=== PATIENT | male | born 1945 | race Caucasian/White ===

== ENCOUNTER 2020-03-09 00:30 | Inpatient (IN) ==
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
[2020-03-09] MEDS ORDERED: ONDANSETRON 4 MG/2 ML VIAL IV PRN ×3 (01:15→10:03)
[2020-03-09] MEDS: HYDROmorphone 1 MG/ML SYRINGE IV PRN ×3 (01:56→19:05)
[2020-03-09] MEDS ORDERED: 0.9 % SODIUM CHLORIDE 1,000 ML IV SCH (02:00)
[2020-03-09] MEDS ORDERED: 0.9 % SODIUM CHLORIDE 10 ML SYRINGE IV SCH (06:00)
[2020-03-09] MEDS: DOCUSATE SODIUM 100 MG CAPSULE PO SCH ×2 (08:29→20:18)
[2020-03-09] MEDS ORDERED: KETAMINE 100 MG/ML ML ONE (08:55)
[2020-03-09] MEDS ORDERED: LIDOCAINE HCL/PF 100 MG/5 ML SYRINGE IV ONE (08:55)
[2020-03-09] MEDS ORDERED: ONDANSETRON 4 MG/2 ML VIAL ONE (08:55)
[2020-03-09] MEDS ORDERED: DEXAMETHASONE 10 MG/ML VIAL ONE (08:55)
[2020-03-09] MEDS ORDERED: PROPOFOL 200 MG/20 ML VIAL IV ONE (08:55)
[2020-03-09] MEDS ORDERED: ceFAZolin 1 GM VIAL ONE (08:57)
[2020-03-09] MEDS ORDERED: ceFAZolin 2 GM in DEXTROSE 5% IN WATER 50 ML IV SCH (09:00)
--- NOTE | 2020-03-09 09:24 | XRay Report ---
HISTORY: Chest pain, dyspnea, hip fracture FINDINGS: The lungs are clear and well expanded. The heart size and pulmonary vasculature are normal. The mediastinum and hilar normal. There are several old left lateral rib fractures. Metallic foreign body is seen in the left upper quadrant of the abdomen. This was present on a prior CT done on 01/08/13 and may be from prior trauma or surgery. IMPRESSION: No acute abnormality Interpreted and Authenticated by: Derek Pichardo 03/09/20
[2020-03-09] MEDS ORDERED: NALOXONE HCL 0.4 MG/ML VIAL IV PRN (09:41)
[2020-03-09] MEDS ORDERED: ATROPINE SULFATE 0.4 MG/ML VIAL IV PRN (09:41)
[2020-03-09] MEDS ORDERED: METHOCARBAMOL 1,000 MG/10 ML VIAL IV PRN (09:41)
[2020-03-09] MEDS ORDERED: ePHEDrine 50 MG/ML AMPUL IV PRN (09:41)
[2020-03-09] MEDS ORDERED: ACETAMINOPHEN 1,000 MG/100 ML BOTTLE IV ONE (09:41)
[2020-03-09] MEDS ORDERED: fentaNYL 100 MCG/2 ML VIAL IV PRN (09:41)
[2020-03-09] MEDS ORDERED: IPRATROPIUM/ALBUTEROL 3 ML AMPUL.NEB NEB PRN (09:41)
[2020-03-09] MEDS ORDERED: FLUMAZENIL 0.1 MG/ML ML IV PRN (09:41)
[2020-03-09] MEDS ORDERED: PROMETHAZINE 25 MG/ML VIAL IV PRN (09:41)
[2020-03-09] MEDS ORDERED: METOPROLOL TARTRATE 5 MG/5 ML VIAL IV PRN (09:41)
[2020-03-09] MEDS ORDERED: diphenhydrAMINE 50 MG/ML VIAL IV PRN (09:41)
--- NOTE | 2020-03-09 10:00 | XRay Report ---
HISTORY: FINDINGS: IMPRESSION: 0.6 minutes of fluoroscopy time was used Interpreted and Authenticated by: Derek Pichardo 03/09/20
[2020-03-09] MEDS ORDERED: BENZOCAINE/MENTHOL 1 LOZENGE PO PRN (10:04)
[2020-03-09] MEDS ORDERED: FLEETS ADULT ENEMA PR PRN (10:05)
[2020-03-09] MEDS ORDERED: DEXTROSE 31 GM ORAL.SUSP PO PRN (10:14)
[2020-03-09] MEDS ORDERED: DEXTROSE 50% 50 ML VIAL IV PRN (10:14)
--- NOTE | 2020-03-09 10:17 | Consultation ---
DATE OF CONSULTATION: 03/09/2020 REQUESTING PHYSICIAN: Hospitalist service. CONSULTING PHYSICIAN: Dr Galindo. REASON FOR CONSULTATION: Left hip fracture. HISTORY: This is a 74-year-old male with multiple medical comorbidities who lost his balance picking up his cat and landed on the ground and injured his left hip. He was unable to bear weight and had severe pain. He was taken to the Emergency Department in [place] and x-rays taken, which showed intertrochanteric fracture. He denies any other associated injuries or significant loss of consciousness. PAST MEDICAL HISTORY: Positive for type 2 diabetes, exposure to Agent [place], hypertension, hypothyroidism, hyperlipidemia. MEDICATIONS: Inderal, alogliptin, empagliflozin, hydroxyzine, levothyroxine, metformin, propranolol, primidone, omeprazole, glipizide, docusate. ALLERGIES: No drug allergies. SOCIAL HISTORY: He is a former smoker. Drinks alcohol a few times a week. FAMILY HISTORY: Positive for mother with atrial fibrillation. REVIEW OF SYSTEMS: His 10 system review is negative, except per the HPI. PHYSICAL EXAMINATION: VITAL SIGNS: He is 5 feet 10.5 inches tall, 220 pounds, blood pressure 149/85, respirations 16, pulse 82, temperature 97.6. GENERAL: He appears his stated age in no acute distress. He is oriented to person and place. Mood and affect are appropriate. HEART: Regular. LUNGS: Clear. EXTREMITIES: Bilateral upper extremities and right lower extremity show no obvious evidence of injury and are normal to inspection, range of motion, stability and strength. Left lower extremity is normal to inspection. However, range of motion is limited secondary to pain. There is no gross instability, but significant guarding. Strength is 3/5 distally with foot flexion and extension. Sensation to light touch is grossly intact. Pedal pulses palpable. His x-ray reviewed from shows left intertrochanteric hip fracture. IMPRESSION: Closed left intertrochanteric hip fracture in a 74-year-old male with multiple medical comorbidities. PLAN: Recommend proceeding with open treatment and internal fixation of the left hip fracture with intramedullary bernie fixation. Risks of surgery include, but not limited to, bleeding; infection; injury to nerves, blood vessels, other surrounding structures; anesthetic risks; nonunion or malunion of fracture; failure of hardware fixation; possibility of needing further surgery; and DVT and pulmonary embolus risks. He understands and wishes to proceed. BJB:aide Job ID: [id number] Doc ID: [id number] John Galindo MD
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
[2020-03-09] MEDS: 0.9 % SODIUM CHLORIDE 1,000 ML IV SCH ×2 (10:48→20:19)
[2020-03-09] MEDS: INSULIN LISPRO 1 UNIT/0.01 ML UNIT SQ SCH ×3 (11:33→20:17)
[2020-03-09] MEDS: HYDROCODONE/APAP 7.5/325MG TABLET PO PRN ×3 (11:47→22:07)
[2020-03-09] MEDS: 0.9 % SODIUM CHLORIDE 10 ML SYRINGE IV SCH ×2 (12:54→20:19)
[2020-03-09] MEDS ORDERED: WARFARIN 5 MG TABLET PO ONE (14:00)
--- NOTE | 2020-03-09 15:10 | XRay Report ---
HISTORY: Postop open reduction internal fixation of fractured left hip FINDINGS: There is good alignment following open reduction internal fixation of the intertrochanteric fracture. A bernie has been inserted through the greater trochanter into the shaft of the femur and there is a crossing bernie extending into the femoral head and neck. The impaction and angulation seen preoperatively have been corrected. The femoral head is normally aligned with the acetabulum and there is no underlying arthritis. IMPRESSION: Good alignment following internal fixation of the fractured proximal left femur Interpreted and Authenticated by: Derek Pichardo 03/09/20
[2020-03-09 15:49] LABS: POC INR 1.2 (0.8-1.2); POC Pro Time 14.4 sec (11.9-14.5)
[2020-03-09] MEDS: ceFAZolin 1 GM VIAL IV SCH (17:41)
[2020-03-09] MEDS: OMEPRAZOLE 20 MG CAPSULE PO SCH (19:05)
[2020-03-09] MEDS: PRIMIDONE 50 MG TABLET PO SCH (20:18)
[2020-03-09] MEDS: SENNOSIDES 1 TABLET PO SCH (20:18)
[2020-03-09] MEDS: PROPRANOLOL 60 MG CAP.XL.24H PO SCH (20:18)
[2020-03-09] MEDS ORDERED: HEPARIN 5,000 UNIT/ML VIAL SQ SCH (21:00)
[2020-03-09] MEDS ORDERED: DOCUSATE SODIUM 100 MG CAPSULE PO SCH (21:00)
[2020-03-10] MEDS: ceFAZolin 1 GM VIAL IV SCH (01:00)
[2020-03-10] MEDS: HYDROCODONE/APAP 7.5/325MG TABLET PO PRN ×3 (04:20→14:38)
[2020-03-10] MEDS: 0.9 % SODIUM CHLORIDE 10 ML SYRINGE IV SCH ×3 (05:58→20:50)
[2020-03-10] MEDS: 0.9 % SODIUM CHLORIDE 1,000 ML IV SCH (06:23)
[2020-03-10 06:45] LABS: INR 1.1 (0.9-1.1); Prothrombin Time 15.1 sec (11.9-14.5)
[2020-03-10 06:48] LABS: Basophils # (Auto) 0.04 K/mcL (0.00-0.20); Basophils % (Auto) 0.5 % (0.0-2.0); Eosinophils # (Auto) 0.18 K/mcL (0.00-0.70); Eosinophils % (Auto) 2.5 % (0.0-7.0); Hematocrit 34.4 % (41.0-55.0); Hemoglobin 11.1 g/dL (13.5-16.5); Lymphocytes # (Auto) 1.48 K/mcL (1.50-4.80); Lymphocytes % (Auto) 20.3 % (15.0-49.0); Mean Corpuscular HGB Conc 32.3 g/dL (31.0-36.0); Mean Platelet Volume 10.6 fL (7.4-10.4); Monocytes # (Auto) 0.94 K/mcL (0.10-0.90); Monocytes % (Auto) 12.9 % (1.0-12.0); Neutrophils % (Auto) 63.8 % (38.0-78.0); Platelet Count 218 K/mcL (140-440); RBC 3.66 M/mcL (4.50-5.90); Red Cell Distribution Width 15.1 % (11.5-14.5); WBC 7.3 K/mcL (4.5-11.0)
[2020-03-10 07:32] LABS: ALT/SGPT 9 U/L (<40); AST/SGOT 11 U/L (<40); Albumin/Globulin Ratio 1.4 (1.0-2.3); Alkaline Phosphatase 65 U/L (39-117); Bilirubin,Total 0.2 mg/dL (0.1-1.0); Blood Urea Nitrogen 27 mg/dL (8-23); Calcium 7.5 mg/dL (8.6-10.4); Carbon Dioxide 20 mmol/L (22-30); Chloride 104 mmol/L (96-108); Globulin 2.1 gm/dL (2.2-3.7); Glomerular Filtration Rate 54; Glucose 259 mg/dL (70-105)
[2020-03-10] MEDS: LEVOTHYROXINE 125 MCG TABLET PO SCH (07:36)
[2020-03-10] MEDS: INSULIN LISPRO 1 UNIT/0.01 ML UNIT SQ SCH (07:36)
[2020-03-10] MEDS: DOCUSATE SODIUM 100 MG CAPSULE PO SCH ×2 (08:32→20:49)
[2020-03-10] MEDS: PROPRANOLOL 40 MG TABLET PO SCH (08:32)
[2020-03-10] MEDS: ATORVASTATIN 20 MG TABLET PO SCH (08:33)
[2020-03-10] MEDS: PROPRANOLOL 160 MG PO SCH (08:33)
[2020-03-10] MEDS ORDERED: PATIENTS OWN MEDICATION 1 DOSE MISCELL PO SCH (09:00)
--- NOTE | 2020-03-10 09:50 | Operative Note ---
DATE OF OPERATION: 03/09/2020 PREOPERATIVE DIAGNOSIS: Left hip intertrochanteric hip fracture, closed. POSTOPERATIVE DIAGNOSIS: Left hip intertrochanteric hip fracture, closed. PROCEDURE PERFORMED: Open treatment and internal fixation of left intertrochanteric hip fracture with intramedullary fixation using a short [place] Gamma nail. SURGEON: John Galindo M.D. RECEIVING TANK OPERATOR: Riccardo Rodrigues PA-C. The PA's assistance was required for the safe and efficient completion of the entire case. This provider's expertise and technical skill were required throughout the case. The PA assisted with preoperative coordination, intraoperative retraction, wound closure, dressing and splint application, as well as postoperative documentation and care coordination. ANESTHESIA: General. DRAINS: None. SPECIMENS: None. COMPLICATIONS: None. BLOOD LOSS: 100 mL. POSTOPERATIVE CONDITION: Stable. INDICATIONS FOR SURGERY: This is a 74-year-old male who sustained a fall last night injuring his left hip. He had inability to bear weight. He was taken to the ER in [place] and found to have an intertrochanteric hip fracture. FINDINGS AT SURGERY: Intertrochanteric hip fracture. Post-fixation showed satisfactory fracture reduction and hardware position. PROCEDURE IN DETAIL: The patient had been seen preoperatively. Informed consent had been obtained after discussion of risks and benefits of surgery. Risks including, but not limited to, bleeding; infection; injury to nerves, blood vessels, and other surrounding structures; anesthetic risks; nonunion or malunion of fracture; failure of hardware fixation; possibility of needing further surgery; and DVT and pulmonary embolus risks. He understood and wished to proceed. Correct operative site was marked. The patient was taken to the operating room and general anesthesia induced. He was carefully positioned on the fracture table and the left lower extremity was placed in some mild traction with internal rotation. The right lower extremity was flexed and abducted out of the way and pressure points carefully padded. Fluoroscopy was brought in to verify fracture reduction. Left hip was prepped and draped in normal sterile fashion. Timeout was performed verifying patient name, operative site, and plan. Incision was made proximal to greater trochanter with a scalpel through skin and subcutaneous tissue. Hemostasis was obtained with Bovie cautery. We continued on with the Bovie down through the IT band. A guide pin was placed in the tip of the trochanter and then passed down in the shaft. We checked the lateral view and made slight adjustment to make sure it was aiming down the shaft. We then placed a soft tissue protector and opening reamer was used and then used a 125 short gamma nail. This was passed in the proximal femur. This was taken down until the lag screw would be central in the neck. The sleeve was taken down to skin and a scalpel was used to make an incision. We then spread with a tonsil clamp and then the sleeve was taken down to bone. We drilled the near cortex. A threaded guide pin was passed up in the femoral neck. We checked our AP view and then checked our lateral view and made minor adjustments until we liked our trajectory, and this was taken up to nearly the articular surface. We then used a depth gauge to determine our lag screw which was a 90 mm. We then used the step reamer to ream and then the 90 lag screw was placed over the guide pin and up into the femoral head. This was taken up until it was less than a centimeter from the articular surface on both AP and lateral views. We then placed our proximal locking screw and nail. This was taken until it was all the way locked and then verified we could not rotate the lag screw and then backed off a quarter turn to allow sliding compression. We then removed the sleeve and guide pin. We then used the smaller sleeve for the distal interlock. Again, a stab incision was made and the sleeve was passed down to bone. We drilled and a 40 mm distal interlock screw was opened. This was advanced until it was against cortex with good bicortical purchase. We then removed the sleeve and removed the jig. Final fluoro images were taken, AP and lateral views. We then irrigated copiously with saline. A #1 Vicryls used to close the IT band proximally. We also used #1 Vicryl for some fat closure and then 2-0 Monocryl for subcutaneous and ginger for skin. Xeroform and sterile dressing were applied. The patient was awakened, extubated, and transferred to recovery in stable condition. KASHMIR:ginna Job ID: [id number] Doc ID: [id number] John Galindo MD
[2020-03-10] MEDS ORDERED: 0.9 % SODIUM CHLORIDE 1,000 ML IV SCH (10:30)
[2020-03-10] MEDS ORDERED: 0.9 % SODIUM CHLORIDE 1,000 ML BAG IV SCH (10:30)
--- NOTE | 2020-03-10 10:43 | Internal Med Progress Note ---
SUBJECTIVE Subjective Patient information: Note initiated : 03/10/20 at 10:40 am Service Date, if different from initiated Date: [] Patient: Robson Mccullough 74 y/o M admitted on 03/09/20 for xfer from [facility] for hip fx. Chief Complaint: [] Mr. Mcculolugh is a 74 year old M with a past medical history of diabetes type 2, high blood pressure, essential tremor, psoriasis, and hypothyroidism who was sent to the ER from of [facility] due to fracture of left hip. As per patient and , patient had a mechanical fall 6 PM yesterday. Denies loss of consciousness or injury to his head. After the fall, he developed the left hip pain. Otherwise he denies headache, dizziness, nausea, vomiting, chest pain, abdominal pain, dysuria, or change in vision. In the ER x-ray showed left hip fracture. When I saw this patient, other than the symptoms mentioned above, he was fine. 03/10 Today patient feels fine and does not have any complaints. Pain is controlled. Patient refused use of insulin. Last night I discussed with patient and . Initially patient agreed with insulin sliding scale. But this morning he refused insulin again. Discussed with the patient and again. He did not change his mind. So I discontinued his insulin sliding scale and keep Accu-Chek 4 times a day. I ordered his oral diabetic medication other than metformin. This morning his temperature 99.1. Otherwise vital signs are stable and acceptable. he has been on home oxygen. Continue oxygen WBC 7.3, hemoglobin 11.1, creatinine 1.3. Review of Systems All systems: reviewed and no additional remarkable complaints except as stated Constitutional Vitals: Vital Signs Temp Pulse Resp BP Pulse Ox 99.1 F H 80 20 137/69 95 03/10/20 07:48 03/10/20 07:48 03/10/20 07:48 03/10/20 07:48 03/10/20 07:48 Period Temp Pulse Resp BP Sys/Estrada Pulse Ox Last 24 Hr 98.0 F-99.2 F 80-92 16-20 133-166/69-87 94-98 Intake and Output 03/09/20 03/10/20 03/10/20 21:59 05:59 13:59 Intake Total 2732 1240 1240 Output Total 1575 700 575 Balance 1157 540 665 Weight 95.254 kg Intake & Output: Intake & Output 03/09/20 03/10/20 03/10/20 21:59 05:59 13:59 Intake Total 2732 1240 1240 Output Total 1575 700 575 Balance 1157 540 665 Weight 95.254 kg Intake: IV 952 1000 Sodium Chloride 0.9% 1,000 ml @ 952 1000 100 mls/hr IV .Q10H [facility] Rx#: [id number] Oral 1780 1240 240 Output: Urine Catheter Amount 1575 700 Void Amount 575 Other: Meal Dinner Breakfast Percent of Meal Consumed 100% 75% Feeding Ability Independent Independent Urine Appearance Clear Clear Uretheral (Han) Clear Urine Color Pale Dark Yellow Uretheral (Han) Pale Additional findings Additional findings: General - No acute distress Eyes - PERRLA, EOM intact ENT no rhinorrhea, no redness or rash around throat or on face Neck supple, no JVD, no thyromegaly Respiratory: Lungs -clear, no wheezing or crackles. Cardiovascular - RRR no m/r/g, GI - Normal bowel sounds, no distended, soft. Extremeties -left hip tenderness, dressing dry. Good peripheral pulse. Hemo/lymphatic/immune no lymphadenopathy Neurological Alert and oriented x 3, no focal neurological deficits. Psychiatry flat affect OBJ DATA Labs CBC & Chem 7: 03/10/20 05:17 03/10/20 05:17 Labs: Abnormal Lab Results 03/10/20 03/10/20 03/10/20 05:17 05:17 05:17 RBC 3.66 L Hgb 11.1 L Hct 34.4 L RDW 15.1 H MPV 10.6 H [place] % (Auto) 12.9 H Lymph # (Auto) 1.48 L [place] # (Auto) 0.94 H PT 15.1 H Carbon Dioxide 20 L BUN 27 H Creatinine 1.3 H Glucose 259 H Calcium 7.5 L Total Protein 5.1 L Albumin 3.0 L Globulin 2.1 L Meds: Medications Hydrocodone Bitart/Acetaminophen ([place] 7.5/325mg) 0 tab PO Q4HP PRN; Protocol PRN Reason: Per Pain Protocol Last Admin: 03/10/20 08:28 Dose: 2 tab Documented by: Atorvastatin Calcium (Lipitor) 20 mg PO QDAY [facility] Last Admin: 03/10/20 08:33 Dose: 20 mg Documented by: Dextrose (Dextrose 50%) 0 ml IV UD PRN PRN Reason: Hypoglycemia Diagnostic Test (Pha) (Accu-Chek) 1 each FS ACHS [facility] Last Admin: 03/10/20 07:34 Dose: 1 each Documented by: Docusate Sodium (Colace) 100 mg PO BID [facility] Last Admin: 03/10/20 08:32 Dose: 100 mg Documented by: Glipizide (Glucotrol) 20 mg PO BIDAC [facility] Glucose (Insta-Glucose) 15 gm PO PRN PRN PRN Reason: Hypoglycemia Hydromorphone HCl (Dilaudid) 1 mg IV Q2HP PRN; Protocol PRN Reason: Per Pain Protocol Last Admin: 03/09/20 19:05 Dose: 1 mg Documented by: Sodium Chloride (Sodium Chloride 0.9%) 1,000 mls @ 50 mls/hr IV .Q20H [facility] Levothyroxine Sodium (Synthroid) 125 mcg PO QAMAC [facility] Last Admin: 03/10/20 07:36 Dose: 125 mcg Documented by: Morphine Sulfate (Morphine) 0 mg IV Q1HP PRN; Protocol PRN Reason: Per Pain Protocol Omeprazole (Prilosec) 20 mg PO HS [facility] Last Admin: 03/09/20 19:05 Dose: 20 mg Documented by: Ondansetron HCl (Zofran) 4 mg IV Q6HP PRN PRN Reason: Nausea And Vomiting Alogliptin 25 Mg (Tablet) 1 dose PO HS [facility] Empagliflozin 10 Mg (Tablet) 1 dose PO DAILY [facility] Primidone (Mysoline) 150 mg PO HS [facility] Last Admin: 03/09/20 20:18 Dose: 150 mg Documented by: Propranolol HCl (Inderal La) 160 mg PO DAILY [facility] Last Admin: 03/10/20 08:33 Dose: 160 mg Documented by: Propranolol HCl (Inderal La) 60 mg PO HS [facility] Last Admin: 03/09/20 20:18 Dose: 60 mg Documented by: Propranolol HCl (Inderal) 20 mg PO DAILY [facility] Last Admin: 03/10/20 08:32 Dose: 20 mg Documented by: Senna (Senokot) 2 tab PO HS [facility] Last Admin: 03/09/20 20:18 Dose: 2 tab Documented by: Sodium Biphosphate/Sodium Phosphate (Fleets Adult) 1 dose MS Q3-4DAYS PRN PRN Reason: Constipation Sodium Chloride (Saline Flush) 10 ml IV Q8 [facility] Last Admin: 03/10/20 05:58 Dose: Not Given Documented by: Throat Lozenges (Cepacol) 1 lozenge PO PRN PRN PRN Reason: Sore Throat Warfarin Sodium (Coumadin Per Pharmacy) 1 order PO [facility] [place] Sodium (Coumadin) 5 mg PO ONCE@1400 ONE Stop: 03/10/20 14:01 A/P Narrative A/P Narrative: 1. Closed intertrochanteric fracture of Left hip X-ray showed intertrochanteric fracture of left hip s/p Open treatment and internal fixation of left intertrochanteric hip fracture with intramedullary fixation using a short Pro Gamma nail by Dr. Josie denson 03/09/2020 Postop management including pain control and DVT prophylaxis by orthopedics team 2. Mechanical ground level fall PT OT 3. DM type 2 Diabetic diet Patient refused insulin Metformin is on hold. Continue all other home oral diabetic medications Accu-Chek 4 times a day 4. HTN Continue home inderal, propranolol 5. Essential tremor Continue home propranolol 6. Hx of psoriasis Presumed stable 7. Hypothyroidism Continue home Synthroid 8. MISAEL or CKD? Creatinine 1.3 today Chronicity unknown Avoid nephrotoxic meds Repeat renal function in morning 9. DVT prophylaxis: Heparin. He is on warfarin, dosing by pharmacy. But INR 1.1 today. will stop heparin when INR ready. Time Spent With Patient Time: Total time spent is greater than 50% in coordination of care (as documented) at patient's floor/unit and/or counseling patient: QUALITY VTE Deep Vein Thrombosis/Pulmonary Embolism Present on Admission: No
[2020-03-10] MEDS: HYDROmorphone 1 MG/ML SYRINGE IV PRN (11:56)
[2020-03-10] MEDS ORDERED: Empagliflozin 10 MG Tablet PO ONE (12:00)
--- NOTE | 2020-03-10 12:13 | Orthopedic Progress Note ---
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 Chief Complaint: decreased ROM L leg. Mild pain. Constitutional Vitals: Vital Signs Temp Pulse Resp BP Pulse Ox 99.9 F H 88 20 144/75 95 03/10/20 11:58 03/10/20 11:58 03/10/20 11:58 03/10/20 11:58 03/10/20 11:58 Period Temp Pulse Resp BP Sys/Estrada Pulse Ox Last 24 Hr 98.0 F-99.9 F 80-92 - 133-156/69-87 95-98 Intake and Output 03/09/20 03/10/20 03/10/20 21:59 05:59 13:59 Intake Total 2732 1240 1240 Output Total 1575 700 575 Balance 1157 540 665 Weight 210 lb 210 lb Patient Weight 03/11/20 05:59 Weight 210 lb Intake & Output: Intake & Output 03/09/20 03/10/20 03/10/20 21:59 05:59 13:59 Intake Total 2732 1240 1240 Output Total 1575 700 575 Balance 1157 540 665 Weight 210 lb 210 lb Intake: IV 952 1000 Sodium Chloride 0.9% 1,000 ml @ 952 1000 100 mls/hr IV .Q10H [facility] Rx#: [id number] Oral 1780 1240 240 Output: Urine Catheter Amount 1575 700 Void Amount 575 Other: Meal Dinner Breakfast Percent of Meal Consumed 100% 75% Feeding Ability Independent Independent Urine Appearance Clear Clear Uretheral (Han) Clear Clear Urine Color Pale Dark Yellow Uretheral (Han) Pale Pale OBJ DATA Labs CBC & Chem 7: 03/10/20 05:17 03/10/20 05:17 Labs: Abnormal Lab Results 03/10/20 03/10/20 03/10/20 05:17 05:17 05:17 RBC 3.66 L Hgb 11.1 L Hct 34.4 L RDW 15.1 H MPV 10.6 H [place] % (Auto) 12.9 H Lymph # (Auto) 1.48 L [place] # (Auto) 0.94 H PT 15.1 H Carbon Dioxide 20 L BUN 27 H Creatinine 1.3 H Glucose 259 H Calcium 7.5 L Total Protein 5.1 L Albumin 3.0 L Globulin 2.1 L Bandages C/D/I NVI-distal Meds: Medications Hydrocodone Bitart/Acetaminophen ([place] 7.5/325mg) 0 tab PO Q4HP PRN; Protocol PRN Reason: Per Pain Protocol Last Admin: 03/10/20 08:28 Dose: 2 tab Documented by: Atorvastatin Calcium (Lipitor) 20 mg PO QDAY [facility] Last Admin: 03/10/20 08:33 Dose: 20 mg Documented by: Dextrose (Dextrose 50%) 0 ml IV UD PRN PRN Reason: Hypoglycemia Diagnostic Test (Pha) (Accu-Chek) 1 each FS ACHS [facility] Last Admin: 03/10/20 11:25 Dose: 1 each Documented by: Docusate Sodium (Colace) 100 mg PO BID [facility] Last Admin: 03/10/20 08:32 Dose: 100 mg Documented by: Glipizide (Glucotrol) 20 mg PO BIDAC [facility] Glucose (Insta-Glucose) 15 gm PO PRN PRN PRN Reason: Hypoglycemia Heparin Sodium (Porcine) (Heparin) 5,000 unit SQ Q12 [facility] Hydromorphone HCl (Dilaudid) 1 mg IV Q2HP PRN; Protocol PRN Reason: Per Pain Protocol Last Admin: 03/10/20 11:56 Dose: 1 mg Documented by: Sodium Chloride (Sodium Chloride 0.9%) 1,000 mls @ 50 mls/hr IV .Q20H [facility] Levothyroxine Sodium (Synthroid) 125 mcg PO QAMAC [facility] Last Admin: 03/10/20 07:36 Dose: 125 mcg Documented by: Metformin HCl (Glucophage) 1,000 mg PO BIDCC [facility] Morphine Sulfate (Morphine) 0 mg IV Q1HP PRN; Protocol PRN Reason: Per Pain Protocol Omeprazole (Prilosec) 20 mg PO HS [facility] Last Admin: 03/09/20 19:05 Dose: 20 mg Documented by: Ondansetron HCl (Zofran) 4 mg IV Q6HP PRN PRN Reason: Nausea And Vomiting Alogliptin 25 Mg (Tablet) 1 dose PO HS [facility] Empagliflozin 10 Mg (Tablet) 1 dose PO DAILY [facility] Primidone (Mysoline) 150 mg PO HS [facility] Last Admin: 03/09/20 20:18 Dose: 150 mg Documented by: Propranolol HCl (Inderal La) 160 mg PO DAILY [facility] Last Admin: 03/10/20 08:33 Dose: 160 mg Documented by: Propranolol HCl (Inderal La) 60 mg PO HS [facility] Last Admin: 03/09/20 20:18 Dose: 60 mg Documented by: Propranolol HCl (Inderal) 20 mg PO DAILY [facility] Last Admin: 03/10/20 08:32 Dose: 20 mg Documented by: [place] (Senokot) 2 tab PO [facility] Last Admin: 03/09/20 20:18 Dose: 2 tab Documented by: Sodium Biphosphate/Sodium Phosphate (Fleets Adult) 1 dose SC Q3-4DAYS PRN PRN Reason: Constipation Sodium Chloride (Saline Flush) 10 ml IV Q8 [facility] Last Admin: 03/10/20 05:58 Dose: Not Given Documented by: Throat Lozenges (Cepacol) 1 lozenge PO PRN PRN PRN Reason: Sore Throat Warfarin Sodium (Coumadin Per Pharmacy) 1 order PO [facility] Warfarin Sodium (Coumadin) 5 mg PO ONCE@1400 ONE Stop: 03/10/20 14:01 A/P Assessment and plan (1) Closed intertrochanteric fracture of left hip: Status: Acute Comment: mobilize with PT May discharge when ready from ortho standpoint. -f/u at [facility] in 2 weeks. -cont current weight bearing status. -daily dry dressing changes. -coumadin x 30 days Qualifiers: Encounter type: initial encounter Fracture alignment: displaced Qualified Code(s): S72.142A - Displaced intertrochanteric fracture of left femur, initial encounter for closed fracture Time Spent With Patient Time: Total time spent is greater than 50% in coordination of care (as documented) at patient's floor/unit and/or counseling patient:
[2020-03-10] MEDS: metFORMIN 500 MG TABLET PO SCH ×2 (12:20→17:53)
[2020-03-10] MEDS ORDERED: WARFARIN 5 MG TABLET PO ONE (14:00)
[2020-03-10] MEDS: glipiZIDE 5 MG TABLET PO SCH (17:06)
[2020-03-10] MEDS: HYDROcodone/APAP 10/325MG TABLET PO PRN (18:50)
[2020-03-10] MEDS: HEPARIN 5,000 UNIT/ML VIAL SQ SCH (20:48)
[2020-03-10] MEDS: SENNOSIDES 1 TABLET PO SCH (20:49)
[2020-03-10] MEDS: PROPRANOLOL 60 MG CAP.XL.24H PO SCH (20:50)
[2020-03-10] MEDS: PRIMIDONE 50 MG TABLET PO SCH (20:50)
[2020-03-10] MEDS: OMEPRAZOLE 20 MG CAPSULE PO SCH (20:50)
[2020-03-10] MEDS ORDERED: ALOGLIPTIN 25 MG PO SCH (21:00)
[2020-03-11] MEDS: morphine 4 MG/ML VIAL IV PRN ×2 (00:29→09:26)
[2020-03-11] MEDS: HYDROcodone/APAP 10/325MG TABLET PO PRN ×2 (03:49→12:04)
[2020-03-11] MEDS: 0.9 % SODIUM CHLORIDE 10 ML SYRINGE IV SCH (06:46)
[2020-03-11 06:59] LABS: Basophils # (Auto) 0.03 K/mcL (0.00-0.20); Basophils % (Auto) 0.4 % (0.0-2.0); Eosinophils # (Auto) 0.22 K/mcL (0.00-0.70); Eosinophils % (Auto) 3.3 % (0.0-7.0); Hematocrit 32.9 % (41.0-55.0); Hemoglobin 10.8 g/dL (13.5-16.5); Lymphocytes # (Auto) 1.21 K/mcL (1.50-4.80); Mean Cell Volume 93.2 fL (80.0-100.0); Mean Corpuscular HGB Conc 32.8 g/dL (31.0-36.0); Mean Platelet Volume 10.2 fL (7.4-10.4); Monocytes # (Auto) 0.86 K/mcL (0.10-0.90); Monocytes % (Auto) 12.8 % (1.0-12.0); Neutrophils % (Auto) 65.5 % (38.0-78.0); Platelet Count 200 K/mcL (140-440); RBC 3.53 M/mcL (4.50-5.90); Red Cell Distribution Width 15.2 % (11.5-14.5); WBC 6.7 K/mcL (4.5-11.0)
[2020-03-11] MEDS: glipiZIDE 5 MG TABLET PO SCH (07:29)
[2020-03-11] MEDS: LEVOTHYROXINE 125 MCG TABLET PO SCH (07:30)
[2020-03-11 07:41] LABS: ALT/SGPT 9 U/L (<40); AST/SGOT 11 U/L (<40); Albumin 3.3 gm/dL (3.2-5.2); Albumin/Globulin Ratio 1.5 (1.0-2.3); Alkaline Phosphatase 65 U/L (39-117); Bilirubin,Total 0.3 mg/dL (0.1-1.0); Blood Urea Nitrogen 24 mg/dL (8-23); Calcium 8.1 mg/dL (8.6-10.4); Carbon Dioxide 20 mmol/L (22-30); Chloride 104 mmol/L (96-108); Globulin 2.2 gm/dL (2.2-3.7); Glomerular Filtration Rate 74; Glucose 158 mg/dL (70-105)
[2020-03-11 07:45] LABS: INR 1.2 (0.9-1.1); Prothrombin Time 15.7 sec (11.9-14.5)
[2020-03-11] MEDS: metFORMIN 500 MG TABLET PO SCH (07:45)
[2020-03-11] MEDS ORDERED: Empagliflozin 10 MG Tablet PO SCH (09:00)
[2020-03-11] MEDS: HEPARIN 5,000 UNIT/ML VIAL SQ SCH (09:15)
[2020-03-11] MEDS: PROPRANOLOL 160 MG PO SCH (09:16)
[2020-03-11] MEDS: ATORVASTATIN 20 MG TABLET PO SCH (09:16)
[2020-03-11] MEDS: DOCUSATE SODIUM 100 MG CAPSULE PO SCH (09:16)
[2020-03-11] MEDS: PROPRANOLOL 40 MG TABLET PO SCH (09:26)
--- NOTE | 2020-03-11 10:24 | Discharge Summary ---
Discharge Provider Provider Patient information: Note initiated : 03/11/20 at 10:21 am Service Date, if different from initiated Date: [] Patient: Robson Mccullough 74 y/o M admitted on 03/09/20 for xfer from [place] for hip fx. Chief Complaint: [] Discharge diagnosis 1. Closed intertrochanteric fracture of Left hip, s/p Open treatment and internal fixation of left intertrochanteric hip fracture with intramedullary fixation using a short [place] Gamma nail by Dr. Galindo on 03/09/2020 Postop management including pain control and DVT prophylaxis by orthopedics team. Discharging home on recommendations as per orthopedics 2. Mechanical ground level fall, will continue outpatient PT OT 3. DM type 2, Diabetic diet Patient refused insulin. Continue all other home oral diabetic medications Accu-Chek 4 times a day 4. HTN, Continue home inderal, propranolol 5. Essential tremor- Continue home propranolol 6. Hx of psoriasis - Presumed stable 7. Hypothyroidism- Continue home Synthroid Brief hospital course Mr. Mccullough is a 74 year old M with a past medical history of diabetes type 2, high blood pressure, essential tremor, psoriasis, and hypothyroidism who was sent to the ER from [facility] due to fracture of left hip. As per patient and , patient had a mechanical fall 6 PM yesterday. Denies loss of consciousness or injury to his head. After the fall, he developed the left hip pain. Otherwise he denies headache, dizziness, nausea, vomiting, chest pain, abdominal pain, dysuria, or change in vision. In the ER x-ray showed left hip fracture. When I saw this patient, other than the symptoms mentioned above, he was fine. 03/10 Today patient feels fine and does not have any complaints. Pain is controlled. Patient refused use of insulin. Last night I discussed with patient and . Initially patient agreed with insulin sliding scale. But this morning he refused insulin again. Discussed with the patient and again. He did not change his mind. So I discontinued his insulin sliding scale and keep Accu-Chek 4 times a day. I ordered his oral diabetic medication other than metformin. This morning his temperature 99.1. Otherwise vital signs are stable and acceptable. he has been on home oxygen. Continue oxygen WBC 7.3, hemoglobin 11.1, creatinine 1.3. 10/13-patient doing well. Discharging home as per Ortho recommendations. No overnight fever chills pain. Stable hemodynamics and labs. Date of admission: 03/09/20 01:38 Discharge date: 03/11/20 Consults: 03/09/20 Consult to Physician [CONS] Stat Comment: Consulting Provider: John Galindo Reason For Exam: Physician to Consult Consult to Physician [CONS] Stat Comment: Consulting Provider: Darlin Gavin Reason For Exam: Physician to Consult 03/09/20 10:15 Consult to Physician [CONS] Routine Comment: Consulting Provider: John Galindo Reason For Exam: Physician to Consult Discharge Meds Discharge Medications Home Medications docusate sodium 250 mg capsule 250 mg PO BID cap 04/02/15 [History Confirmed 03/09/20 Last Taken 03/08/20 250 mg] glipizide 10 mg tablet 20 mg PO BIDAC 04/02/15 [History Confirmed 03/09/20 Last Taken 03/08/20 20 mg] omeprazole magnesium 20 mg tablet,delayed release 20 mg PO HS 04/02/15 [History Confirmed 03/09/20 Last Taken 03/08/20 20 mg] Inderal XL 160 mg PO QAM 03/09/20 [History Confirmed 03/09/20 Last Taken 03/08/20 160 mg] alogliptin 25 mg PO HS 03/09/20 [History Confirmed 03/09/20 Last Taken 03/08/20 25 mg] ascorbic acid (vitamin C) 250 mg PO HS 03/09/20 [History Confirmed 03/09/20 Last Taken 03/08/20 250 mg] atorvastatin 20 mg PO QDAY 03/09/20 [History Confirmed 03/09/20 Last Taken 03/08/20 20 mg] empagliflozin 10 mg PO QDAY 03/09/20 [History Confirmed 03/09/20 Last Taken 03/08/20 10 mg] levothyroxine 125 mcg PO QDAY 03/09/20 [History Confirmed 03/09/20 Last Taken 03/08/20 125 mcg] metformin 1,000 mg PO BID 03/09/20 [History Confirmed 03/09/20 Last Taken 03/08/20 1000 mg] primidone 150 mg PO HS 03/09/20 [History Confirmed 03/09/20 Last Taken 03/08/20 150 mg] propranolol 20 mg PO QAM 03/09/20 [History Confirmed 03/09/20 Last Taken 03/08/20 20 mg] propranolol 60 mg PO HS 03/09/20 [History Confirmed 03/09/20 Last Taken 03/08/20 60 mg] Warfarin Per Pharmacy [Coumadin Per Pharmacy] 1 order PO UD #30 tab 03/10/20 [Rx Last Taken Unknown] hydrocodone-acetaminophen 1 - 2 tab PO Q4-6HP PRN #60 tab 03/10/20 [Rx Last Taken Unknown] warfarin 5 mg PO QDAY #30 tab 03/11/20 [Rx Last Taken Unknown] COURSE Hospital Course Hospital course: . Discharge diagnosis: . Time Spent with Patient Time attestation: Total time spent providing and/or coordinating discharge services: EXAM Constitutional Vitals: Temp Pulse Resp BP Pulse Ox 98.0 F 97 H 20 166/80 97 03/11/20 08:00 03/11/20 08:00 03/11/20 08:00 03/11/20 08:00 03/11/20 08:00 Discharge Data Data Completed and Pending Labs on day of discharge: Labs from last 24 hours 03/11/20 03/11/20 03/11/20 05:22 05:22 05:22 WBC 6.7 RBC 3.53 L Hgb 10.8 L Hct 32.9 L MCV 93.2 MCH 30.6 MCHC 32.8 RDW 15.2 H Plt Count 200 MPV 10.2 Neut % (Auto) 65.5 Lymph % (Auto) 18.0 [place] % (Auto) 12.8 H Eos % (Auto) 3.3 Baso % (Auto) 0.4 Lymph # (Auto) 1.21 L [place] # (Auto) 0.86 Eos # (Auto) 0.22 Baso # (Auto) 0.03 Absolute Neutrophils 4.41 PT 15.7 H INR 1.2 H Sodium 135 Potassium 4.0 Chloride 104 Carbon Dioxide 20 L Anion Gap 11.0 BUN 24 H Creatinine 1.0 GFR Calculation 74 Glucose 158 H Calcium 8.1 L Total Bilirubin 0.3 AST 11 ALT 9 Alkaline Phosphatase 65 Total Protein 5.5 L Albumin 3.3 Globulin 2.2 Albumin/Globulin Ratio 1.5 Discharge Plan Patient/Caregiver Discharge Instructions Activity: increase activity as tolerated and other Diet: Consistent Carbohydrate Activity Restrictions/Additional Instructions: Follow-up PCP in [5] days F/u orthopedics as scheduled by orthopedics along with post op care. Post op DVT prophylaxis per orthopedics I recommend primary care physician to check CBC BMP UA as a posthospital follow- up in 1 week. Continue aggressive bowel regimen to prevent constipation Maintain fall precautions All meals on chair sitting upright at 90 degrees to prevent aspiration Return to ER if concerning symptoms noted including worsening shortness of breath, fever chills, neurological changes, diarrhea, bleeding Refrain from smoking and alcohol Continue diet and activity as advised Discussed importance of medication adherence Please review medication list with patient prior to discharge Please schedule follow-up with PCP/Providers prior to discharge and provide printouts Prescriptions: New hydrocodone-acetaminophen 7.5-325 mg tablet 1 - 2 tab PO Q4-6HP PRN (Reason: pain) Qty: 60 RF: 0 Warfarin Per Pharmacy [Coumadin Per Pharmacy] 1 order PO UD Qty: 30 RF: 0 warfarin 5 mg Tablet 5 mg PO QDAY Qty: 30 RF: 0 Continued glipizide 10 mg tablet 20 mg PO BIDAC RF: 0 docusate sodium 250 mg capsule 250 mg PO BID RF: 0 omeprazole magnesium 20 mg tablet,delayed release (DR/EC) 20 mg PO HS RF: 0 levothyroxine 125 mcg PO QDAY RF: 0 primidone 50 mg Tablet 150 mg PO HS RF: 0 Inderal XL 160 mg PO QAM RF: 0 metformin 1,000 mg Tablet 1,000 mg PO BID RF: 0 atorvastatin 20 mg Tablet 20 mg PO QDAY RF: 0 propranolol 60 mg Capsule,Extended Release 24 Hr 60 mg PO HS RF: 0 ascorbic acid (vitamin C) 250 mg Tablet 250 mg PO HS RF: 0 propranolol 20 mg Tablet 20 mg PO QAM RF: 0 alogliptin 25 mg Tablet 25 mg PO HS RF: 0 empagliflozin 10 mg Tablet 10 mg PO QDAY RF: 0 Other Ambulatory Orders: Prothrombin Time INR (Routine) Timeframe: 1 Month Facility: [facility] - Location: Laboratory Ordered By: John Galindo Physical Therapy Discharge Order (Routine) Location: None Selected Ordered By: Juan Moya (ONCE) Location: None Selected Ordered By: Juan Rodrigues Follow Up Plan Patient Disposition: Home, Self-Care Prognosis: Fair Rehab Potential: Fair I certify that the patient requires SNF services: No Overall status at discharge: patient is progressing back to baseline Discharge Orders: Discharge Order (Routine); Ordered 03/11/20 Ordered By: Cheikh BERKOWITZ VTE Deep Vein Thrombosis/Pulmonary Embolism Present on Admission: No
== END 2020-03-11 12:45 | disposition home or self-care (01) | DRG 482 ==
LOC: ED 00:30 → MEDSUR 01:38
PROVIDERS: ADMIT Internal Medicine; ATTEND Internal Medicine